=== PATIENT | male | born 1975 | race Caucasian/White ===

== ENCOUNTER 2016-11-27 21:17 | Emergency (ER) | payer MEDICARE, MEDICAID ==
[2016-11-27 22:11] VITALS: BP 147/90; PULSE 106; RESP 24; TEMP 98.5; O2SAT 97
== END 2016-11-27 22:31 | disposition home or self-care (01) | DRG 897 ==
LOC: ED 21:17
DX: F10.229 Alcohol dependence with intoxication, unspecified (principal)
CPT/HCPCS: 99282

== ENCOUNTER 2016-11-28 19:28 | Emergency (ER) | payer MEDICARE, MEDICAID ==
[2016-11-28 20:09] LABS: BASOPHILS % (AUTO) 2 % (0-3); EOSINOPHILS % (AUTO) 2 % (0-9); HEMATOCRIT 52 % (39-53); MEAN CORPUSCULAR HGB CONC 35.8 gm/dl (32.0-36.0); MEAN CORPUSCULAR VOLUME 88 fL (80-100); NEUTROPHILS % (AUTO) 52.3 % (37-80)
[2016-11-28 20:22] LABS: CALCIUM 8.8 mg/dl (8.5-10.1); POTASSIUM 3.8 mMol/L (3.5-5.1)
[2016-11-28 20:58] VITALS: BP 127/84; PULSE 90; RESP 95; TEMP 96.6; O2SAT 95
[2016-11-28 21:18] LABS: AMPHETAMINES NEGATIVE (NEGATIVE); BILIRUBIN,URINE NEGATIVE (NEGATIVE); GLUCOSE, URINE (UA) NEGATIVE (NEGATIVE); KETONES,URINE NEGATIVE (NEGATIVE); LEUKOCYTE ESTERASE ,URINE NEGATIVE (NEGATIVE); METHADONE NEGATIVE (NEGATIVE); NITRATE,URINE NEGATIVE (NEGATIVE); OCCULT BLOOD,URINE NEGATIVE (NEG-TRACE); OPIATES(OP13) NEGATIVE (NEGATIVE); OXYCODONE(OXY) NEGATIVE (NEGATIVE); PROPOXYPHENE(PPX) NEGATIVE (NEGATIVE); RBC,URINE NEGATIVE (0-3AV/HPF); TRICYCLIC ANTIDEPRESSANTS NEGATIVE (NEGATIVE); UROBILINOGEN,URINE 0.2 (0.2-1.0 EU); WBC,URINE 0-1 (0-5AV/HPF)
[2016-11-28 21:19] LABS: APPEARANCE,URINE CLEAR; COLOR,URINE YELLOW
== END 2016-11-28 20:55 | DRG 897 ==
LOC: ED 19:28
DX: F10.129 Alcohol abuse with intoxication, unspecified (principal); R45.851 Suicidal ideations; Y90.7 Blood alcohol level of 200-239 mg/100 ml; Z02.89 Encounter for other administrative examinations; R45.850 Homicidal ideations; F32.9 Major depressive disorder, single episode, unspecified
CPT/HCPCS: 36415; 80048; 80305; 80307; 81001; 85025; 99283